=== PATIENT | female | born 1970 | race Caucasian/White ===

== ENCOUNTER 2018-12-15 14:12 | Emergency (ER) | payer MEDICAID ==
[~2018-12-15] VITALS: Wt 138.1 kg
--- NOTE | 2018-12-15 15:10 | ERD ---
ER Documentation Chief Complaint Chief Complaint bib self, cc: right knee pain x 1 month HPI Patient is a 48-year-old female presents ER for concerns of right knee pain times a month. Patient states that she fell 1 month ago at her house. Patient states since that time she had difficulty ambulating. Patient reports taking Tylenol with no alleviation of symptoms. Patient denies any previous fractures or dislocations. Patient denies any head injuries. ROS All systems reviewed and are negative except as per history of present illness. Medications Home Meds Active Scripts Ibuprofen* (Motrin*) 600 Mg Tab, 600 MG PO Q6, #30 TAB Prov:MICHAEL HANKS PA-C 12/15/18 Allergies Allergies: Coded Allergies: No Known Allergy (Unverified , 12/15/18) PMhx/Soc Medical and Surgical Hx: pt denies Medical Hx, pt denies Surgical Hx FmHx Family History: No diabetes Physical Exam Vitals Vital Signs Date Temp Pulse Resp B/P (MAP) Pulse Ox O2 O2 Flow FiO2 Time Delivery Rate 12/15/18 98.2 86 19 128/70 100 14:17 (89) Physical Exam GENERAL: Obese female. Appears in no acute distress. HEAD: Normocephalic, atraumatic. EYES: Pupils are equally reactive bilaterally. EOMs grossly intact. No conjunctival erythema. NECK: Supple. No meningismus. Normal range of motion of the neck. LUNG: Clear to auscultation bilaterally. No rhonchi, wheezing, rales or coarse breath sounds. HEART: Regular rate and rhythm. No murmurs, rubs or gallops. EXTREMITIES: Equal pulses bilaterally. No peripheral clubbing, cyanosis or edema. No unilateral leg swelling. NEUROLOGIC: Alert and oriented. Moving all four extremities without any difficulty. Normal speech. Steady gait. SKIN: Normal color. Warm and dry. No rashes or lesions. Results 24 hrs Current Medications Medications Dose Sig/Imer Start Time Status Last (Trade) Ordered Route PRN Stop Time Admin Dose Reason Admin Ibuprofen 600 mg ONCE ONCE 12/15/18 DC 12/15/18 (Motrin) PO 15:30 15:09 12/15/18 15:31 Procedures/MDM ED COURSE: The patient was stable throughout ED course. I kept the patient and/or family informed of laboratory and diagnostic imaging results throughout the ED course. DIAGNOSTIC IMAGING: Read by radiologist. Patient: ARTUR VEGAS : 1970 Age: 48 Sex: F MR #: [id number] DOS: 12/15/18 1502 Ordering MD: MICHAEL HANKS PA-C Location: [facility] Room/Bed: PROCEDURE: CR Right Knee CLINICAL INDICATION: Pain TECHNIQUE: An AP, a tunnel view and a lateral view were submitted. COMPARISON: None FINDINGS: Osseous Structures: The osseous elements appear well mineralized and intact. Join Spaces: The joint spaces are well maintained. A small joint effusion is seen in the suprapatellar bursa.. Soft Tissues: The soft tissues appear unremarkable. IMPRESSION: 1. Small suprapatellar joint effusion. 2. Otherwise, unremarkable right knee series. Physician Jeanne Date Time Electronically viewed and signed by Physician Jeanne on 12/15/2018 15:35 RH/ CC: MICHAEL HANKS PA-C [phone] PROCEDURES: SPLINT APPLICATION: The patient was verbally consented at bedside prior to splint application. Patient was explained the risks, benefits and alternatives to this procedure. The patient was neurovascularly intact prior to and status post application of the splint. The patient tolerated the procedure well with no complications. Splint type: Mukund wrap and knee immobilizer Extremity: right Indication: knee pain MEDICATIONS GIVEN: Ibuprofen Patient tolerated medication well with no adverse reactions. Patient reported improvement in pain. MEDICAL DECISION MAKING: This is a 48-year-old female presents the ER for concerns of right knee pain times 1 month. Patient states pain started after she fell approximately 1 month ago in her house. Vital signs were reviewed. Patient was afebrile. Xrays showed small suprapatellar joint effusion. Patient was placed in an Mukund wrap. Patient requested knee immobilizer for additional stability. Crutches was provided. Crutches was provided. Patient was advised to follow-up with the mobility specialist on outpatient basis. At this time, patient presentation was consistent with a right knee pain. Low suspicion for femur fracture, patella fracture, tibial plateau fracture, septic joint, gout, popliteal cyst, prepatellar bursitis, patellofemoral syndrome, patellar tendinitis, Navarre-Schlatter disease, osteoarthritis, osteomyelitis, DVT or compartment syndrome. At this time, unable to rule out any meniscus and knee ligament injuries. PRESCRIPTIONS: Ibuprofen DISCHARGE: At this time, patient is stable for discharge and outpatient management. RICE therapy and ROM exercises were advised to avoid stiffness. I have instructed the patient to follow-up with his/her primary care physician in 1-2 days. I have discussed with the patient the possibility of needing to see an mobility specialist for further workup and imaging if the pain persists. I have instructed the patient to promptly return to the ER for any new or worsening symptoms including increased pain, swelling, redness, warmth or fever. The patient and/or family expressed understanding of and agreement with this plan. All questions were answered. Home care instructions were provided. Disclaimer: Inadvertent spelling and grammatical errors are likely due to EHR/dictation software use and do not reflect on the overall quality of patient care. Also, please note that the electronic time recorded on this note does not necessarily reflect the actual time of the patient encounter. Departure Diagnosis: Primary Impression: Knee pain Chronicity: acute Laterality: right Qualified Codes: M25.561 - Pain in right knee Condition: Stable Patient Instructions: Knee Pain, Uncertain Cause Referrals: [facility] YOU HAVE RECEIVED A MEDICAL SCREENING EXAM AND THE RESULTS INDICATE THAT YOU DO NOT HAVE A CONDITION THAT REQUIRES URGENT TREATMENT IN THE EMERGENCY DEPARTMENT. FURTHER EVALUATION AND TREATMENT OF YOUR CONDITION CAN WAIT UNTIL YOU ARE SEEN I N YOUR DOCTORS OFFICE WITHIN THE NEXT 1-2 DAYS. IT IS YOUR RESPONSIBILITY TO MAKE AN APPOINTMENT FOR FOLOW-UP CARE. IF YOU HAVE A PRIMARY DOCTOR --you should call your primary doctor and schedule an appointment IF YOU DO NOT HAVE A PRIMARY DOCTOR YOU CAN CALL OUR PHYSICIAN REFERRAL HOTLINE AT IF YOU CAN NOT AFFORD TO SEE A PHYSICIAN YOU CAN CHOSE FROM THE FOLLOWING [facility] [address] [facility] [address] [facility]. [facility] [address] [facility] [address] [facility]. [facility] [address] [facility]. [facility]. [address] [facility]. [facility] YOU HAVE RECEIVED A MEDICAL SCREENING EXAM AND THE RESULTS INDICATE THAT YOU DO NOT HAVE A CONDITION THAT REQUIRES URGENT TREATMENT IN THE EMERGENCY DEPARTMENT. FURTHER EVALUATION AND TREATMENT OF YOUR CONDITION CAN WAIT UNTIL YOU ARE SEEN IN YOUR DOCTORS OFFICE WITHIN THE NEXT 1-2 DAYS. IT IS YOUR RESPONSIBILITY TO MAKE AN APPOINTMENT FOR FOLOW-UP CARE. IF YOU HAVE A PRIMARY DOCTOR --you should call your primary doctor and schedule and appointment IF YOU DO NOT HAVE A PRIMARY DOCTOR YOU CAN CALL OUR PHYSICIAN REFERRAL HOTLINE AT . IF YOU CAN NOT AFFORD TO SEE A PHYSICIAN YOU CAN CHOSE FROM THE FOLLOWING [facility] INSTITUTIONS: [facility] [address] [place] [address] [facility] [address] [place], [place] [id number] [place] [address] [address] [place] [address] [facility] Hours: Mon-Fri 9:00 AM - 5:00 PM Additional Instructions: Llame al doctor MAANA y aftab nellie NASIM PARA DENTRO DE 1-2 MOHAN.Dgale a la secretaria que nosotros le instruimos hacer esta nasim.Avise o llame si palacios condicin se empeora antes de la nasim. Regresa aqui si peor o no mejor. MICHAEL HANKS PA-C Dec 15, 2018 15:10
[2018-12-15] MEDS ORDERED: IBUPROFEN 600 MG TAB PO ONE (15:30)
[2018-12-15] MEDS ORDERED: IBUP-1542 PO (15:44)
== END 2018-12-15 16:43 | disposition home or self-care (01) ==
LOC: FTE 14:12
DX: M25.561 Pain in right knee (principal)
CPT/HCPCS: 29505; 73562; Z7502; Z7610